=== PATIENT | female | born 1940 | race Caucasian/White ===

== ENCOUNTER → 2017-07-05 | Outpatient (CLI) | payer OTHER, MEDICARE | LOC: BRMIMAGING 12:50 | PROVIDERS: ATTEND Internal Medicine Rheumatology | DX: M19.041 Primary osteoarthritis, right hand (principal); M19.042 Primary osteoarthritis, left hand; M11.241 Other chondrocalcinosis, right hand; M11.242 Other chondrocalcinosis, left hand; M32.9 Systemic lupus erythematosus, unspecified | CPT/HCPCS: 73130-PO ==